=== PATIENT | male | born 1965 | race Caucasian/White ===

== ENCOUNTER → 2020-07-16 | Outpatient (CLI) | payer BC | END | disposition home or self-care (01) | LOC: COVID19 07:57 | PROVIDERS: ATTEND Internal Medicine | DX: Z20.828 Contact with and (suspected) exposure to other viral communicable diseases (principal) ==

== ENCOUNTER → 2020-07-20 | Outpatient (CLI) | payer BC | END | disposition home or self-care (01) | LOC: COVID19 11:50 | PROVIDERS: ATTEND Internal Medicine | DX: R06.02 Shortness of breath (principal); Z20.828 Contact with and (suspected) exposure to other viral communicable diseases ==

== ENCOUNTER 2021-08-08 22:07 | Emergency (ER) | payer SELFPAY ==
[~2021-08-08] VITALS: Ht 177.8 cm; Wt 78.0 kg
[2021-08-08 22:14] VITALS: BP 132/88
[2021-08-08] MEDS ORDERED: NAPROXEN250 MG PO (23:19)
== END 2021-08-08 23:55 | disposition home or self-care (01) ==
LOC: ED 22:07
DX: M25.561 Pain in right knee (principal); Z98.890 Other specified postprocedural states